=== PATIENT | male | born 1965 | race Caucasian/White ===

== ENCOUNTER 2021-09-18 07:44 | Emergency (ER) | payer OTHER, SELFPAY ==
--- NOTE | ~2021-09-18 | XR_ITS ---
EXAMINATION: XR chest 2V DATE: 09/18/2021 08:26 INDICATION: Chest pressure. Left arm pain. TECHNIQUE: Frontal and lateral views of the chest were obtained. COMPARISON: Chest 2 views 06/09/2018, CT abdomen and pelvis 06/08/2018 FINDINGS: The chest demonstrates clear lungs without pneumonia, pleural effusion, or pneumothorax. Th e heart size is normal. IMPRESSION: 1. No acute cardiopulmonary disease. Reviewed, dictated and finalized at location A.
[2021-09-18 07:46] VITALS: BP 166/93; PULSE 58; RESP 16; TEMP 36.8; O2SAT 100
[2021-09-18 07:58] VITALS: PULSE 58
--- NOTE | 2021-09-18 08:04 | ECG_ITS ---
Measurements Intervals Ridge Rate: 60 P: 50 IN: 143 QRS: 33 QRSD: 106 T: 79 QT: 399 QTc: 401 Interpretive Statements SINUS RHYTHM INCOMPLETE RIGHT BUNDLE BRANCH BLOCK [90+ ms QRS DURATION, TERMINAL R IN V1/V2, 40+ ms S IN I/aVL/V4/V5/V6] COMPARED TO ECG 06/08/2018 18:24:14 INCOMPLETE RIGHT BUNDLE-BRANCH BLOCK NOW PRESENT Electronically Signed On 09-18-2021 16:30:14 CDT by Morena March M.D.
[2021-09-18] MEDS: KETOROLAC 30 MG/ML VIAL (*BKC) IV PUSH (08:07)
[2021-09-18 08:15] LABS: Basophils Absolute Auto 0.1 K/mm3 (0.0-0.1); Basophils Percent Auto 1.3 % (0.2-1.2); Eosinophils Absolute Auto 0.2 K/mm3 (0-0.3); Eosinophils Percent Auto 2.2 % (0-4.4); Hematocrit 50.1 % (42.0-52.0); Hemoglobin 16.5 g/dL (14.0-18.0); Immature Granulocyte Absolute 0.03 K/mm3 (0.00-0.031); Immature Granulocyte Percent A 0.3 % (0-0.5); Lymphocytes Absolute Auto 3.67 K/mm3 (0.9-3.2); Lymphocytes Percent Auto 39.8 % (18.3-44.2); Mean Corpuscular HGB Conc 32.9 g/dl (32-36); Mean Platelet Volume 10.8 fl (7.4-10.4); Monocytes Absolute Auto 0.6 K/mm3 (0.1-0.6); Monocytes Percent Auto 6.3 % (2.6-8.5); Neutrophils Absolute Auto 4.6 K/mm3 (1.3-6.7); Neutrophils Percent Auto 50.1 % (45.5-73.1); Platelet Count Result 350 k/mm3 (150-375); Red Blood Count 5.33 M/mm3 (4.6-6.20); Red Cell Distribution Width 13.4 % (11.5-14.5); White Blood Count 9.2 K/mm3 (4.5-10.0)
[2021-09-18 08:24] LABS: Prothrombin Time 12.6 Seconds (11.1-14.7)
[2021-09-18 08:25] LABS: Partial Thromboplastin Time 26.1 SECONDS (22.3-36.8)
[2021-09-18 08:30] LABS: Alanine Aminotransferase 20 U/L (6-50); Albumin Level 4.7 g/dL (3.5-5.1); Alkaline Phosphatase 70 U/L (38-126); Anion Gap 10 mmol/L (8-16); Aspartate Amino Transferase 30 U/L (17-59); Bilirubin,Total 0.4 mg/dL (0.2-1.3); Blood Urea Nitrogen 10 mg/dL (9-20); Calcium 9.5 mg/dL (8.4-10.2); Carbon Dioxide 28 mmol/L (22-30); Chloride 99 mmol/L (98-107); Estimated CRCL calculation 70 ml/min; Estimated Glomerular Filt Rate > 60; Glucose 268 mg/dL (65-110); Lipase 739 U/L (23-300); Potassium 4.2 mmol/L (3.4-5.0); Sodium 137 mmol/L (137-145)
[2021-09-18 08:38] VITALS: BP 188/94; PULSE 51; RESP 19; O2SAT 98
[2021-09-18 08:42] LABS: Troponin I < 0.012 ng/mL (0.000-0.034)
[2021-09-18 10:42] VITALS: BP 183/97; PULSE 54; RESP 18; O2SAT 97
[2021-09-18 11:16] LABS: Troponin I < 0.012 ng/mL (0.000-0.034)
--- NOTE | 2021-09-18 11:21 | ED.GENADULT ---
HPI - General Adult General Chief complaint: Unspecified Stated complaint: left arm pain/numbness, if i lay on my back - CP Time Seen by Provider: 09/18/21 08:11 Source: patient and family Mode of arrival: ambulatory Limitations: no limitations History of Present Illness HPI narrative: 55-year-old with a history of diabetes here with complaints of left-sided chest pain mostly in the scapular area for past few weeks. Patient states that occasionally he gets severe pain which he had few days ago however he chose not to come to the ER, since this morning having constant pain. He denies any trauma. Patient states that he works for [employer] at times picks heavy grocery bags. No previous history of CAD Onset (ago): week(s) (2) Location: upper extremity (left) Radiation: back Severity: moderate Quality: aching Pain Consistency: constant Relieving factors: none Exacerbating factors: movement Associated symptoms: denies other symptoms Treatments prior to arrival: none Related Data Home Medications Medication Instructions Recorded Confirmed A To Z Multivitamin 09/18/21 Aspir-81 09/18/21 ncyrpmnish-gbmczwxalqlsd-jhrgocoe tablet 09/18/21 50 mg-325 mg-40 mg tablet fenofibrate 160 mg tablet mg 09/18/21 fluticasone propionate 50 intranasal 09/18/21 mcg/actuation nasal spray,suspension gabapentin 300 mg capsule mg 09/18/21 glimepiride 1 mg tablet mg 09/18/21 insulin glargine 100 unit/mL (3 unit subcut 09/18/21 mL) subcutaneous pen (Basaglar KwikPen U-100 Insulin) insulin glargine 100 unit/mL (3 unit subcut 09/18/21 mL) subcutaneous pen (Basaglar KwikPen U-100 Insulin) metformin 1,000 mg tablet mg 09/18/21 trazodone 50 mg tablet mg 09/18/21 Allergies Allergy/AdvReac Type Severity Reaction Status Date / Time venom-honey bee Allergy Anaphylaxis Verified 09/18/21 07:56 Review of Systems Review of Systems: All systems reviewed & are unremarkable except as noted in HPI and below Constitutional: Constitutional: Reports no additional constitutional complaints Eyes: Eyes: Reports no additional eye complaints ENT: Reports system reviewed and no additional complaints, except as documented Cardiovascular: Cardiovascular: Reports as per HPI Respiratory: Respiratory: Reports no additional respiratory complaints Gastrointestinal: Gastrointestinal: Reports no additional gastrointestinal complaints Musculoskeletal: Musculoskeletal: Reports as per HPI Integumentary/Breasts: Skin/Breast: Reports system reviewed and no additional complaints, except as docu Neurologic: Reports system reviewed and no additional complaints, except as documented Exam Narrative: GENERAL: Well-appearing, well-nourished, and in no acute distress. HEAD: Normocephalic, atraumatic. EYES: PERRLA and EOMI. NECK: Supple. CHEST: Clear to auscultation. No respiratory distress. HEART: Regular rate and rhythm. No murmur heard. Normal peripheral pulses. ABDOMEN: Soft, nontender, nondistended, normal active bowel sounds. EXTREMITIES: Normal range of motion. No edema. SKIN: Warm, dry, no rash. NEURO: No focal deficits. Alert and oriented x3. PSYCH: Normal mood and affect. Course Course Emergency Course: Patient comfortably sitting on the bed in no discomfort informed him and his about his lab work, chest x-ray findings his pain appears to be more musculoskeletal rather than cardiac. Recommended him to take pain medications as prescribed. Follow-up with his primary doctor. Vital Signs Vital signs: Vital Signs Temperature 36.8 C 09/18/21 07:46 Pulse Rate 58 L 09/18/21 07:46 Respiratory Rate 16 09/18/21 07:46 Blood Pressure 166/93 H 09/18/21 07:46 Pulse Oximetry 100 09/18/21 07:46 Oxygen Delivery Room Air 09/18/21 07:46 Temperature 36.8 C 09/18/21 07:46 Pulse Rate 54 L 09/18/21 10:42 Respiratory Rate 18 09/18/21 10:42 Blood Pressure 183/97 H 09/18/21 10:42 Pulse Oximetry 97 09/18
== END 2021-09-18 12:08 | disposition home or self-care (01) ==
PROVIDERS: Emergency Provider Family Medicine; PCP Internal Medicine
DX: M25.512 Pain in left shoulder (principal); E11.9 Type 2 diabetes mellitus without complications; Z79.4 Long term (current) use of insulin; Z79.84 Long term (current) use of oral hypoglycemic drugs; Z79.82 Long term (current) use of aspirin
CPT/HCPCS: 36415; 71046; 80053; 83690; 84484; 85025; 85610; 85730; 93005; 96374; 99284; J1885

== ENCOUNTER 2021-10-05 15:42 | Outpatient (CLI) | payer OTHER, SELFPAY ==
--- NOTE | ~2021-10-05 | MR_ITS ---
EXAMINATION: MR cervical spine wo con DATE: 10/05/2021 16:37 INDICATION: Cervical spinal stenosis TECHNIQUE: Magnetic resonance imaging (MRI) of the cervical spine was performed without intravenous c ontrast. Sequences included sagittal T2-weighted FSE, sagittal T2-weighted FS FSE, sagittal T1-weight ed FSE, axial MERGE and axial T2-weighted FSE. COMPARISON: None FINDINGS: Bone alignment is normal. Vertebral body heights are normal. Moderate disc height loss at C3-C4 and C4-C5 with fibrofatty degenerative endplate changes at C3-C4. Bone marrow signal is otherwise normal. Minimal disc height loss with annular fissure and disc extrusion at C6-C7. Mild disc height loss at T2-T3 and T3-T4. Subtle region of increased signal at the midline ventral aspect of the cord at the l evel of C5-C6 measuring approximately 9 mm craniocaudally and 5 x 3 mm orthogonal dimensions. The cor d signal is otherwise normal. Cervical soft tissues are unremarkable. The following disc levels are s pecifically discussed: C2-C3: The disc does not extend beyond the endplate margin. There is no uncovertebral joint osteoarth ritis. There is mild left and moderate right facet joint osteoarthritis. There is no neural foraminal stenosis. There is no central canal stenosis. C3-C4: Disc is mildly bulging. There is severe bilateral uncovertebral joint osteoarthritis. There is mild bilateral facet joint osteoarthritis. There is moderate bilateral neural foraminal stenosis. Th ere is mild central canal stenosis. C4-C5: Disc is mildly bulging. There is right and severe left uncovertebral joint osteoarthritis. The re is mild right and moderate left facet joint osteoarthritis. There is moderate left and mild to mod erate right neural foraminal stenosis. There is mild central canal stenosis. C5-C6: Disc is mildly bulging. There is moderate bilateral uncovertebral joint osteoarthritis. There is right and severe left facet joint osteoarthritis. There is mild right and moderate left neural for aminal stenosis. There is no central canal stenosis. C6-C7: Annular fissure and disc extrusion with disc material extending up to 3 mm cephalad to the inf erior endplate of C6 at the central zone and up to 5 mm caudal to the superior endplate of C7 at the right lateral recess. There is mild left uncovertebral joint osteoarthritis. There is mild right and moderate left facet joint osteoarthritis. There is mild right and moderate left neural foraminal sten osis. There is mild central canal stenosis. C7-T1: The disc does not extend beyond the endplate margin. There is mild bilateral uncovertebral ayaz nt osteoarthritis. There is moderate right and severe left facet joint osteoarthritis. There is bilat eral neural foraminal stenosis. There is no central canal stenosis. IMPRESSION: 1. Moderate cervical spondylosis. 2. Nonspecific small T2 hyperintense lesion at the anterior midline of the cord at the level of C5-C6 without without evident expansion or volume loss of the cord or significant central canal stenosis a t this level to suggest compressive myelopathy. Differential would include demyelinating disease such as multiple sclerosis or other infectious, inflammatory or ischemic myelopathy. Reviewed, dictated and finalized at location A. IMPRESSION: 1. Moderate cervical spondylosis. 2. Nonspecific small T2 hyperintense lesion at the anterior midline of the cord at the level of C5-C6 without without evident expansion or volume loss of the cord or significant central canal stenosis at this level to suggest compressive myelopathy. Differential would include demyelinating disease such as multiple sclerosis or other infectious, inflammatory or ischemic myelopathy.
== END 2021-10-05 15:43 | disposition home or self-care (01) ==
PROVIDERS: PCP Internal Medicine; Visit Provider Orthopaedic Surgery
DX: M48.02 Spinal stenosis, cervical region (principal); M47.892 Other spondylosis, cervical region
CPT/HCPCS: 72141

== ENCOUNTER 2022-01-16 12:41 | Outpatient (CLI) | payer OTHER, SELFPAY ==
--- NOTE | ~2022-01-16 | MR_ITS ---
EXAMINATION: MR cervical spine wo/w con DATE: 01/16/2022 13:48 INDICATION: Spondylosis without myelopathy or radiculopathy. Left arm weakness with numbness in the f ingers. TECHNIQUE: Magnetic resonance imaging (MRI) of the cervical spine was performed without and with 18 m L MultiHance intravenous contrast. COMPARISON: Cervical spine MRI 10/05/2021 FINDINGS: Bone alignment is normal. Vertebral body heights are normal. There is moderately decreased disc height at C3-C4 and C4-C5 and mildly decreased disc height at C6-C7. There is increased T2-weigh elver signal intensity in the spinal cord anteriorly at C5-C6 without contrast enhancement. The followi ng disc levels are specifically discussed: C2-C3: The disc does not extend beyond the endplate margin. There is no uncovertebral joint osteoarth ritis. There is moderate bilateral facet joint osteoarthritis. There is no neural foraminal stenosis. There is no central canal stenosis. C3-C4: The disc is bulging. There is severe bilateral uncovertebral joint osteoarthritis. There is mo derate bilateral facet joint osteoarthritis. There is moderate bilateral neural foraminal stenosis. T here is mild central canal stenosis. C4-C5: The disc is bulging. There is severe bilateral uncovertebral joint osteoarthritis. There is mi ld right and moderate left facet joint osteoarthritis. There is moderate bilateral neural foraminal s tenosis. There is mild central canal stenosis. C5-C6: There is a central protrusion. There is moderate bilateral uncovertebral joint osteoarthritis. There is severe bilateral facet joint osteoarthritis. There is mild right and moderate left neural f oraminal stenosis. There is mild central canal stenosis. C6-C7: There is a right central extrusion. There is mild bilateral uncovertebral joint osteoarthritis . There is moderate right and severe left facet joint osteoarthritis. There is mild right and moderat e left neural foraminal stenosis. There is mild central canal stenosis. C7-T1: The disc does not extend beyond the endplate margin. There is mild bilateral uncovertebral ayaz nt osteoarthritis. There is severe bilateral facet joint osteoarthritis. There is mild bilateral neur al foraminal stenosis. There is no central canal stenosis. IMPRESSION: 1. Stable increased T2-weighted signal intensity in the anterior spinal cord at C5-C6. The differenti al diagnosis is broad and includes multiple sclerosis, viral myelitis, posttraumatic myelopathy, infa rct, and transverse myelitis 2. Stable moderate cervical spondylosis. Reviewed, dictated and finalized at location E. [employer] IMPRESSION: 1. Stable increased T2-weighted signal intensity in the anterior spinal cord at C5-C6. The differential diagnosis is broad and includes multiple sclerosis, vi ral myelitis, posttraumatic myelopathy, infarct, and transverse myelitis 2. Stable moderate cervical spondylosis.
== END 2022-01-16 12:42 | disposition home or self-care (01) ==
PROVIDERS: PCP Internal Medicine; Visit Provider Neurological Surgery
DX: M47.892 Other spondylosis, cervical region (principal)
CPT/HCPCS: 72156; A9577

== ENCOUNTER 2022-06-05 15:57 | Outpatient (CLI) | payer OTHER, SELFPAY ==
--- NOTE | ~2022-06-05 | MR_ITS ---
MRI of the brain Clinical History: Left upper extremity numbness Technique: Axial and sagittal T1-weighted images were acquired. These were followed by axial T2-weigh elver, diffusion weighted, gradient, and FLAIR images.. Following intravenous administration of 18 cc M ultiHance gadolinium, T1-weighted fat-sat imaging was performed in the axial and coronal planes. Findings: No abnormal signal seen in the brain parenchyma. No acute infarct, intracranial hemorrhage, or mass lesion. Ventricles and subarachnoid spaces are unremarkable. Orbits are unremarkable. Paranasal sinuses and m astoid air cells are clear. Major intracranial flow voids appear intact. Sagittal midline structures are intact. No abnormal postcontrast enhancement identified. IMPRESSION: Unremarkable exam. Reviewed, dictated and finalized at location M. IMPRESSION: Unremarkable exam.
== END 2022-06-05 15:58 | disposition home or self-care (01) ==
PROVIDERS: PCP Internal Medicine; Visit Provider Student in an Organized Health Care Education/Training Program
DX: R90.89 Other abnormal findings on diagnostic imaging of central nervous system (principal); R20.0 Anesthesia of skin
CPT/HCPCS: 70553; A9577

== ENCOUNTER 2023-03-19 10:19 | Outpatient (CLI) | payer OTHER, SELFPAY ==
--- NOTE | 2023-03-19 12:00 | NEURO_ITS ---
Impression: # Non-diabetic complains of numbness of left hand. # Mild left Cubital Tunnel Syndrome. Nerve Conduction Studies Anti Sensory Summary Table Stim Site NR Peak (ms) P-T Amp (?V) Site1 Site2 Delta-P (ms) Dist (cm) Marco (m/s) Left Median Anti Sensory (2-3nd Digit) Wrist 3.7 14.1 Wrist 2-3nd Digit 3.7 14.0 38 Wrist 2-3nd Digit 3.7 14.0 38 Left Radial Anti Sensory (Base 1st Digit) Wrist 1.8 70.6 Wrist Base 1st Digit 1.8 0.0 Left Ulnar Anti Sensory (5th Digit) Wrist 3.1 5.0 Wrist 5th Digit 3.1 13.0 42 Motor Summary Table Stim Site NR Onset (ms) O-P Amp (mV) Site1 Site2 Delta-0 (ms) Dist (cm) Amrco (m/s) Left Median Motor Run #1 (Abd Poll Brev) Wrist 4.2 4.5 Elbow Wrist 3.9 26.0 67 Elbow 8.1 5.3 Left Median Motor Run #2 (Abd Poll Brev) Wrist 3.9 5.0 Elbow Wrist 4.5 24.0 53 Elbow 8.4 5.1 Left Ulnar Motor (Abd Dig Minimi) Wrist 3.3 8.4 A Elbow Wrist 5.8 30.0 52 A Elbow 9.1 6.7 B Elbow Wrist 3.7 22.0 59 B Elbow 7.0 7.2 B Elbow A Elbow 2.1 8.0 38 Comparison Summary Table Stim Site NR Peak (ms) P-T Amp (?V) Site1 Site2 Delta-P (ms) Left Median/Ulnar Palm Comparison Run #1 (Wrist - 8cm) Median Palm 1.9 49.2 Median Palm Ulnar Palm Ulnar Palm NR Left Median/Ulnar Palm Comparison Run #2 (Wrist - 8cm) Ulnar Palm 1.7 6.7 EMG Side Muscle Nerve Root Ins Act Fibs Amp Dur Recrt Comment Left 1stDorInt Ulnar C8-T1 Nml Nml Nml Nml Nml Left Ext Indicis Radial (Post Int) C7-8 Nml Nml Nml Nml Nml Left Ext Digitorum Radial (Post Int) C7-8 Nml Nml Nml Nml Nml Left BrachioRad Radial C5-6 Nml Nml Nml Nml Nml Left Abd Poll Brev Median C8-T1 Nml Nml Nml Nml Nml Left Biceps Musculocut C5-6 Nml Nml Nml Nml Nml Left Triceps Radial C6-7-8 Nml Nml Nml Nml Nml Left Deltoid Axillary C5-6 Nml Nml Nml Nml Nml Left FlexCarRad Median C6-7 Nml Nml Nml Nml Nml Left FlexPolLong Median (Ant Int) C7-8 Nml Nml Nml Nml Nml MTDD
== END 2023-03-19 10:20 | disposition home or self-care (01) ==
LOC: ANHNEURO 10:19
PROVIDERS: PCP Internal Medicine; Visit Provider Student in an Organized Health Care Education/Training Program
DX: R20.0 Anesthesia of skin (principal); G56.22 Lesion of ulnar nerve, left upper limb
CPT/HCPCS: 95886; 95909

== ENCOUNTER 2023-08-20 13:24 | Outpatient (CLI) | payer OTHER, SELFPAY ==
--- NOTE | ~2023-08-20 | CT_ITS ---
CT Scan of the Chest without Contrast: Clinical Indication: Lung cancer screening, nicotine dependence Technique: Contiguous sections were acquired throughout the chest without intravenous contrast. Dose reduction technique was used on this scan by utilizing automated exposure control and iterative recon struction technique. The dose-length product (DLP) was 130.14 mGy-cm. Findings: There is no evidence of any significant mediastinal, hilar or axillary lymphadenopathy. The mediastin al soft tissues appear normal. There is no evidence of pleural or pericardial effusion. The lungs are clear. No pulmonary nodules or infiltrates are noted. Images through the upper abdomen reveal no abnormalities. Impression: Lung RADS 1: Negative. 12 month follow-up screening CT advised. Reviewed, dictated and finalized at location . Impression: Lung RADS 1: Negative. 12 month follow-up screening CT advised.
== END 2023-08-20 13:25 | disposition home or self-care (01) ==
PROVIDERS: PCP Internal Medicine; Visit Provider Internal Medicine
DX: Z12.2 Encounter for screening for malignant neoplasm of respiratory organs (principal); Z87.891 Personal history of nicotine dependence
CPT/HCPCS: 71271

== ENCOUNTER 2023-08-25 13:47 | Outpatient (CLI) | payer OTHER, SELFPAY ==
[2023-08-25 14:36] LABS: Basophils Absolute Auto 0.1 K/mm3 (0.0-0.1); Basophils Percent Auto 0.8 % (0.2-1.2); Eosinophils Absolute Auto 0.3 K/mm3 (0-0.3); Eosinophils Percent Auto 2.1 % (0-4.4); Hemoglobin 15.9 g/dL (14.0-18.0); Immature Granulocyte Absolute 0.03 K/mm3 (0.00-0.031); Immature Granulocyte Percent A 0.3 % (0-0.5); Lymphocytes Absolute Auto 4.54 K/mm3 (0.9-3.2); Lymphocytes Percent Auto 38.3 % (18.3-44.2); Mean Corpuscular HGB Conc 34.6 g/dl (32-36); Mean Corpuscular Hemoglobin 32.3 pg (26-34); Mean Corpuscular Volume 93.5 fl (80-100); Mean Platelet Volume 10.9 fl (7.4-10.4); Monocytes Absolute Auto 0.6 K/mm3 (0.1-0.6); Monocytes Percent Auto 5.2 % (2.6-8.5); Neutrophils Absolute Auto 6.3 K/mm3 (1.3-6.7); Neutrophils Percent Auto 53.3 % (45.5-73.1); Platelet Count Result 289 k/mm3 (150-375); Red Blood Count 4.92 M/mm3 (4.6-6.20); Red Cell Distribution Width 13.2 % (11.5-14.5); White Blood Count 11.8 K/mm3 (4.5-10.0)
[2023-08-25 14:46] LABS: Alanine Aminotransferase 41 U/L (6-50); Albumin Level 4.5 g/dL (3.5-5.1); Alkaline Phosphatase 80 U/L (38-126); Anion Gap 9 mmol/L (4-12); Aspartate Amino Transferase 28 U/L (17-59); Bilirubin,Total 0.3 mg/dL (0.2-1.3); Blood Urea Nitrogen 10 mg/dL (9-20); Carbon Dioxide 30 mmol/L (22-30); Chloride 101 mmol/L (98-107); Cholesterol 120 mg/dL (0-200); Estimated Glomerular Filt Rate > 60; Glucose 213 mg/dL (65-110); HDL Direct 41 mg/dL; Potassium 4.3 mmol/L (3.4-5.0); Sodium 140 mmol/L (137-145); Triglycerides 189 mg/dL (<150)
[2023-08-25 14:57] LABS: LDL Cholesterol Direct 64 mg/dL
[2023-08-25 14:58] LABS: Creatinine Urine 23.9 mg/dL
[2023-08-25 15:02] LABS: Microalbumin Urine Random 6.7 mg/L (0-16.7)
[2023-08-25 15:04] LABS: Hemoglobin A1C 7.7 % (<5.7)
[2023-08-25 15:15] LABS: Prostate Specific Antigen 0.7 ng/mL (< OR = 4.0)
== END 2023-08-25 13:48 | disposition home or self-care (01) ==
LOC: ANHLAB 13:51
PROVIDERS: PCP Internal Medicine; Visit Provider Internal Medicine
DX: E11.9 Type 2 diabetes mellitus without complications (principal); I10 Essential (primary) hypertension; Z12.5 Encounter for screening for malignant neoplasm of prostate
CPT/HCPCS: 36415; 80053; 80061; 82043; 83036; 84153; 85025

== ENCOUNTER 2024-03-18 13:08 | Emergency (ER) | payer OTHER, SELFPAY ==
--- NOTE | ~2024-03-18 | CT_ITS ---
CLINICAL INDICATION: Abdominal pain and diarrhea COMPARISON: 06/08/2018. TECHNIQUE: Multiple contiguous axial images of the abdomen and pelvis were performed without the admi nistration of intravenous contrast The dose-length product (DLP) was 549.14 mGy-cm. Automated exposure control and iterative reconstruction technique were employed. FINDINGS/OBSERVATIONS: Visualized lower thorax: The bilateral lung bases are clear. The heart is of normal size, without pericardial effusion. Large hiatal hernia is present. Liver: The liver demonstrates homogeneous attenuation and is not enlarged measuring 16 cm in longitudinal di mension. Gallbladder and biliary system: The gallbladder is only minimally distended, and otherwise unremarkable. Pancreas: Limited evaluation of the pancreas secondary to the lack of intravenous contrast. Spleen: The spleen demonstrates homogeneous attenuation and is not enlarged measuring 8 cm in longitudinal di mension. Kidneys: 2 foci of fluid attenuation are demonstrated within the left kidney. The first within the lower pole measuring 22 x 26 x 20 mm (anterior to posterior x medial to lateral x cranial to caudal dimension), increased in size from previous examination. The second within the interpolar region measuring 14 x 13 x 16 mm (anterior to posterior x medial to lateral x cranial to caudal dimension), new from prior. No hydronephrosis or renal calculi. Adrenal glands: Unremarkable. Gastrointestinal tract: Colonic diverticulosis without surrounding inflammatory change. Appendix: The air-filled appendix is of normal caliber (axial series, images 122 through 134). Vasculature: Densley calcified atherosclerotic disease within the abdominal aorta and pelvic vasculature Lymph nodes: Limited evaluation without contrast. Pelvic structures: The bladder is decompressed and otherwise unremarkable. The prostate gland is not enlarged. Body wall and musculoskeletal: No significant degenerative disease within the lower thoracic or lumbosacral spine. IMPRESSION: Colonic diverticulosis without surrounding inflammatory change. Large hiatal hernia. Interval enlargement of a focus of fluid attenuation within the lower pole of the left kidney with in terval development of a second focus, when compared with prior study performed 06/08/2018. Focused ult rasound may be performed (nonemergently) for further evaluation. No acute intra-abdominal findings, as detailed above. Reviewed, dictated and finalized at location A. [employer] IMPRESSION: Colonic diverticulosis without surrounding inflammatory change. Large hiatal hernia. Interval enlargement of a focus of fluid attenuation within the lower pole of t he left kidney with interval development of a second focus, when compared with prior study performed 06/08/2018. Focused ultrasound may be performed (nonemerge ntly) for further evaluation. No acute intra-abdominal findings, as detailed above.
--- NOTE | ~2024-03-18 | XR_ITS ---
EXAMINATION: XR chest 2V DATE: 03/18/2024 15:05 INDICATION: Cough. TECHNIQUE: Frontal and lateral views of the chest were obtained. COMPARISON: Chest 2 views 09/18/2021, chest CT 08/20/2023 FINDINGS: There is no pneumonia, pleural effusion, or pneumothorax. The heart size is normal. There i s mild chronic anterior wedging of multiple lower thoracic vertebral bodies. IMPRESSION: 1. No acute cardiopulmonary disease. Reviewed, dictated and finalized at location A. [employer]
[2024-03-18 13:16] VITALS: BP 130/73; PULSE 55; RESP 20; TEMP 36.9; O2SAT 100
[2024-03-18 15:00] LABS: Glucose Point of Care 226 mg/dl (65-105)
--- NOTE | 2024-03-18 15:09 | ED_ITS ---
HPI - URI/Sore Throat General Chief Complaint: Upper Respiratory Infection <LEANNA Wang Last Filed: 03/18/24 15:16> Stated Complaint: cough, congestion <LEANNA Wang Last Filed: 03/18/24 15:16> Time Seen by Provider: 03/18/24 15:09 <LEANNA Wang Last Filed: 03/18/24 15:16> Focused HPI: Patient is a 58 y/o male, with PMH of DM, who presents to the ED with c/o cough and diarrhea. Patient reports he has been sick for the past 1 week with cough, sinus pressure/drainage, diarrhea, fever up to 101.9F, fatigue, body aches. Reports diffuse pain in mid abdomen, feels like a grinding sensation. Denies N/V, SOB, CP. States other family members have been sick with similar sx's. GENERAL: Well-appearing, well-nourished, and in no acute distress. HEAD: Normocephalic, atraumatic. CHEST: Clear to auscultation. ?No respiratory distress. No focal lung sounds. HEART: Regular rate and rhythm.? ABD: Minimal diffuse tenderness. No rebound. Normoactive BS NEURO: ?Alert and oriented x3. Patient screened in triage and initial orders placed.? ?Additional care and disposition to be based upon?diagnostic testing and treatment. <Isha Menjivar PA-C - Last Filed: 03/18/24 15:16> Source: patient <LEANNA Wang Last Filed: 03/18/24 15:16> Mode of arrival: ambulatory <LEANNA Wang Last Filed: 03/18/24 15:16> Limitations: no limitations <LEANNA Wang Last Filed: 03/18/24 15:16> History of Present Illness HPI Narrative: Patient 58-year-old gentleman who presents emergency department with chief complaint of cough and diarrhea. The patient reports he has been sick for the last week reports he had some sinus drainage has had multiple bouts of diarrhea the patient states that he also is a diabetic and is concerned that his blood sugars may be not controlled. <Noé Edwards MD - Last Filed: 03/18/24 17:09> Related Data Home Medications: Home Medications ?Medication ?Instructions ?Recorded ?Confirmed ?Last Taken ?Type ibippccpqf-zdymrwjmjuqxh-jlmboctx tablet 09/18/21 11/27/22 Unknown History 50 mg-325 mg-40 mg tablet fenofibrate 160 mg tablet mg 09/18/21 11/27/22 Unknown History fluticasone propionate 50 intranasal 09/18/21 11/27/22 Unknown History mcg/actuation nasal spray,suspension gabapentin 300 mg capsule mg 09/18/21 11/27/22 Unknown History glimepiride 1 mg tablet mg 09/18/21 11/27/22 Unknown History insulin glargine 100 unit/mL (3 unit subcut 09/18/21 11/27/22 Unknown History mL) subcutaneous pen (Basaglar KwikPen U-100 Insulin) metformin 1,000 mg tablet mg 09/18/21 11/27/22 Unknown History trazodone 50 mg tablet mg 09/18/21 11/27/22 Unknown History hydrocodone 7.5 mg-acetaminophen 1 tablet PO QHS PRN 11/27/22 11/27/22 Unknown History 325 mg tablet losartan 25 mg tablet 25 mg PO DAILY 11/27/22 11/27/22 Unknown History methylprednisolone 4 mg tablets in See Rx Instructions PO PER PKG DIR 11/27/22 11/27/22 Unknown History a dose pack naproxen sodium 550 mg tablet 550 mg PO Q12H PRN 11/27/22 11/27/22 Unknown History prednisone 10 mg tablet 10 mg PO DIRECTED 11/27/22 11/27/22 Unknown History tizanidine 2 mg capsule 2 mg PO TID PRN 11/27/22 11/27/22 Unknown History <Isha Menjivar PA-C - Last Filed: 03/18/24 15:16> Allergies/Adverse Reactions: Allergies Allergy/AdvReac Type Severity Reaction Status Date / Time venom-honey bee Allergy Anaphylaxis Verified 03/18/24 13:19 <Isha Menjivar PA-C - Last Filed: 03/18/24 15:16> Review of Systems 2 Review of Systems: A 10 system review of systems was completed on the patient and is negative except for what is stated in the HPI. Nursing and ancillary documentation was reviewed. <Noé Edwards MD - Last Filed: 03/18/24 17:09> [facility] Past Medical History Medical History: Medical History Diabetes Spinal stenosis in cervical region Shoulder disorder <Isha Menjivar PA-C - Last Filed: 03/18/24 15:16> Surgical History Surgical History: Surgical History H/O eye surgery <Isha Menjivar PA-C - Last Filed: 03/18/24 15:16> Family History Family History: Family History Other Heart disease <Isha Menjivar PA-C - Last Filed: 03/18/24 15:16> Social History Social History: Social History Smoking packs per day: 1 Smoking cigarettes per day: 20.0 Smoking status: Current every day smoker Alcohol intake: never Substance use: current Substance use type: marijuana Lack of Transportation: YES Lack of Food: Sometimes True Current Housing: I Have Housing Concerned About Future Housing: No Difficulty Paying Gas/Electric Bills: YES Difficulty Paying for Meds: No Currently Unemployed: No Education: High School Diploma/GED Difficulty w/ Childcare or Family Care: No Living arrangements: with family Occupation/Education: occupation Additional occupation/education comments: [employer] <Isha Menjivar PA-C - Last Filed: 03/18/24 15:16> Exam 2 Narrative: GENERAL: Well-appearing, well-nourished, and in no acute distress. HEAD: Normocephalic, atraumatic. EYES: PERRLA and EOMI. ENT: Nares clear, no rhinorrhea or epistaxis. Mucous membranes moist. NECK: Supple. CHEST: Clear to auscultation. No respiratory distress. HEART: Regular rate and rhythm. No murmur heard. Normal peripheral pulses. ABDOMEN: Soft, nontender, nondistended, normal active bowel sounds. EXTREMITIES: Normal range of motion. No edema. SKIN: Warm, dry, no rash. NEURO: No focal deficits. Alert and oriented x3. PSYCH: Normal mood and affect. <Noé Edwards MD - Last Filed: 03/18/24 17:09> Course Vital Signs Vital signs: Vital Signs Temperature 36.9 C 03/18/24 13:16 Pulse Rate 55 L 03/18/24 13:16 Respiratory Rate 20 03/18/24 13:16 Blood Pressure 130/73 03/18/24 13:16 Pulse Oximetry 100 03/18/24 13:16 Oxygen Delivery Room Air 03/18/24 13:16 Temperature 36.9 C 03/18/24 13:16 Pulse Rate 57 L 03/18/24 15:41 Respiratory Rate 16 03/18/24 15:41 Blood Pressure 144/79 H 03/18/24 15:41 Pulse Oximetry 99 03/18/24 16:22 Oxygen Delivery Room Air 03/18/24 16:22 <Isha Menjivar PA-C - Last Filed: 03/18/24 15:16> Vital Signs Temperature 36.9 C 03/18/24 13:16 Pulse Rate 55 L 03/18/24 13:16 Respiratory Rate 20 03/18/24 13:16 Blood Pressure 130/73 03/18/24 13:16 Pulse Oximetry 100 03/18/24 13:16 Oxygen Delivery Room Air 03/18/24 13:16 Temperature 36.9 C 03/18/24 13:16 Pulse Rate 57 L 03/18/24 15:41 Respiratory Rate 16 03/18/24 15:41 Blood Pressure 144/79 H 03/18/24 15:41 Pulse Oximetry 99 03/18/24 16:22 Oxygen Delivery Room Air 03/18/24 16:22 <Noé Edwards MD - Last Filed: 03/18/24 17:09> MDM - URI/Sore Throat MDM Narrative Medical decision making narrative: MSE by BARBARA in triage. <Isha Menjivar PA-C - Last Filed: 03/18/24 15:16> MSE by BARBARA in triage. Differential diagnosis includes viral illness, gastroenteritis, dehydration, DKA Chest x-ray showed no focal infiltrate CT scan the abdomen pelvis showed no acute The patient was positive for influenza A <Noé Edwards MD - Last Filed: 03/18/24 17:09> Lab Data Result diagrams: 03/18/24 15:18 03/18/24 15:18 <Isha Menjivar PA-C - Last Filed: 03/18/24 15:16> Labs: Lab Results 03/18/24 03/18/24 03/18/24 Range/Units 14:51 14:57 15:18 WBC 7.4 (4.5-10.0) K/mm3 RBC 5.46 (4.6-6.20) M/mm3 Hgb 17.2 (14.0-18.0) g/dL Hct 49.5 (42.0-52.0) % MCV 90.7 (80-100) fl MCH 31.5 (26-34) pg MCHC 34.7 (32-36) g/dl RDW 13.0 (11.5-14.5) % Plt Count 252 (150-375) k/mm3 MPV 10.8 H (7.4-10.4) fl Immature Gran % (Auto) 0.1 (0-0.5) % Neut % (Auto) 29.6 L (45.5-73.1) % Lymph % (Auto) 61.7 H (18.3-44.2) % Preston % (Auto) 7.4 (2.6-8.5) % Eos % (Auto) 0.7 (0-4.4) % Baso % (Auto) 0.5 (0.2-1.2) % Lymph # (Auto) 4.59 H (0.9-3.2) K/mm3 Preston # (Auto) 0.6 (0.1-0.6) K/mm3 Eos # (Auto) 0.1 (0-0.3) K/mm3 Baso # (Auto) 0.0 (0.0-0.1) K/mm3 Abs Immat Gran (auto) 0.01 (0.00-0.031) K/mm3 Absolute Neuts (auto) 2.2 (1.3-6.7) K/mm3 Absolute Nucleated RBC 0.000 (0.0-0.012) K/mm3 Nucleated RBC % 0.0 (0.0-0.2) % Atypical Lymphocytes Present Smudge Cells Few Platelet Estimate Adequate (Adequate) Schistocytes None seen Sodium 137 (137-145) mmol/L Potassium 4.4 (3.4-5.0) mmol/L Chloride 98 (98-107) mmol/L Carbon Dioxide 26 (22-30) mmol/L Anion Gap 13 H (4-12) mmol/L BUN 16 (9-20) mg/dL Creatinine 0.95 (0.7-1.3) mg/dL Estim Creat Clear Calc 80 ml/min Estimated GFR > 60 (59 - ) Glucose 222 H (65-110) mg/dL POC Capillary Glucose 226 H (65-105) mg/dl Calcium 9.1 (8.4-10.2) mg/dL Magnesium 1.7 (1.6-2.3) mg/dL Total Bilirubin 0.5 (0.2-1.3) mg/dL AST 34 (17-59) U/L ALT 32 (6-50) U/L Alkaline Phosphatase 102 (38-126) U/L Total Protein 8.0 (6.3-8.2) g/dL Albumin 4.3 (3.5-5.1) g/dL Influenza A (RT-PCR) Positive A (Negative) Influenza B (RT-PCR) Negative (Negative) RSV (RT-PCR) Negative (Negative) SARS-CoV-2 RNA (RT-PCR) Negative (Negative) <Isha Menjivar PA-C - Last Filed: 03/18/24 15:16> Lab Results 03/18/24 03/18/24 03/18/24 Range/Units 14:51 14:57 15:18 WBC 7.4 (4.5-10.0) K/mm3 RBC 5.46 (4.6-6.20) M/mm3 Hgb 17.2 (14.0-18.0) g/dL Hct 49.5 (42.0-52.0) % MCV 90.7 (80-100) fl MCH 31.5 (26-34) pg MCHC 34.7 (32-36) g/dl RDW 13.0 (11.5-14.5) % Plt Count 252 (150-375) k/mm3 MPV 10.8 H (7.4-10.4) fl Immature Gran % (Auto) 0.1 (0-0.5) % Neut % (Auto) 29.6 L (45.5-73.1) % Lymph % (Auto) 61.7 H (18.3-44.2) % Preston % (Auto) 7.4 (2.6-8.5) % Eos % (Auto) 0.7 (0-4.4) % Baso % (Auto) 0.5 (0.2-1.2) % Lymph # (Auto) 4.59 H (0.9-3.2) K/mm3 Preston # (Auto) 0.6 (0.1-0.6) K/mm3 Eos # (Auto) 0.1 (0-0.3) K/mm3 Baso # (Auto) 0.0 (0.0-0.1) K/mm3 Abs Immat Gran (auto) 0.01 (0.00-0.031) K/mm3 Absolute Neuts (auto) 2.2 (1.3-6.7) K/mm3 Absolute Nucleated RBC 0.000 (0.0-0.012) K/mm3 Nucleated RBC % 0.0 (0.0-0.2) % Atypical Lymphocytes Present Smudge Cells Few Platelet Estimate Adequate (Adequate) Schistocytes None seen Sodium 137 (137-145) mmol/L Potassium 4.4 (3.4-5.0) mmol/L Chloride 98 (98-107) mmol/L Carbon Dioxide 26 (22-30) mmol/L Anion Gap 13 H (4-12) mmol/L BUN 16 (9-20) mg/dL Creatinine 0.95 (0.7-1.3) mg/dL Estim Creat Clear Calc 80 ml/min Estimated GFR > 60 (59 - ) Glucose 222 H (65-110) mg/dL POC Capillary Glucose 226 H (65-105) mg/dl Calcium 9.1 (8.4-10.2) mg/dL Magnesium 1.7 (1.6-2.3) mg/dL Total Bilirubin 0.5 (0.2-1.3) mg/dL AST 34 (17-59) U/L ALT 32 (6-50) U/L Alkaline Phosphatase 102 (38-126) U/L Total Protein 8.0 (6.3-8.2) g/dL Albumin 4.3 (3.5-5.1) g/dL Influenza A (RT-PCR) Positive A (Negative) Influenza B (RT-PCR) Negative (Negative) RSV (RT-PCR) Negative (Negative) SARS-CoV-2 RNA (RT-PCR) Negative (Negative) <Noé Edwards MD - Last Filed: 03/18/24 17:09> Discharge Plan Discharge Clinical Impression: Influenza, Diabetes mellitus with hyperglycemia, Diarrhea <Isha Menjivar PA-C - Last Filed: 03/18/24 15:16> Patient Disposition: Home, Self-Care <LEANNA Wang Last Filed: 03/18/24 15:16> Condition: Stable <LEANNA Wang Last Filed: 03/18/24 15:16> Instructions: Antibiotic Form, Influenza (ED), Acute Diarrhea (ED) <LEANNA Wang Last Filed: 03/18/24 15:16> Patient Language: French <LEANNA Wang Last Filed: 03/18/24 15:16> Prescriptions: No Action hydrocodone-acetaminophen 7.5-325 mg tablet 1 tablet PO QHS PRN losartan 25 mg tablet 25 mg PO DAILY methylprednisolone 4 mg tablets,dose pack See Rx Instructions PO PER PKG DIR Rx Instructions: PO PER PKG DIR naproxen sodium 550 mg tablet 550 mg PO Q12H PRN prednisone 10 mg tablet 10 mg PO DIRECTED Rx Instructions: see taper instructions tizanidine 2 mg capsule 2 mg PO TID PRN prednisone 10 mg tablet 10 mg PO BID Qty: 20 0RF trazodone 50 mg tablet ipurxqecls-jpvbrxrwxldvy-jrgg 50-325-40 mg tablet glimepiride 1 mg tablet metformin 1,000 mg tablet gabapentin 300 mg capsule fluticasone propionate 50 mcg/actuation spray,suspension INTRANASAL fenofibrate 160 mg tablet insulin glargine [Basaglar KwikPen U-100 Insulin] 100 unit/mL (3 mL) insulin pen SUBCUT methocarbamol 500 mg tablet 500 mg PO TID Qty: 30 0RF <Isha Menjivar PA-C - Last Filed: 03/18/24 15:16> Follow-up/Referrals: Torrey,MD Randall [Primary Care Provider] - <Isha Menjivar PA-C - Last Filed: 03/18/24 15:16> Time of Disposition: 17:08 <Isha Menjivar PA-C - Last Filed: 03/18/24 15:16> 17:08 <Noé Edwards MD - Last Filed: 03/18/24 17:09>
[2024-03-18 15:32] LABS: Basophils Percent Auto 0.5 % (0.2-1.2); Eosinophils Absolute Auto 0.1 K/mm3 (0-0.3); Eosinophils Percent Auto 0.7 % (0-4.4); Hematocrit 49.5 % (42.0-52.0); Hemoglobin 17.2 g/dL (14.0-18.0); Immature Granulocyte Absolute 0.01 K/mm3 (0.00-0.031); Immature Granulocyte Percent A 0.1 % (0-0.5); Lymphocytes Absolute Auto 4.59 K/mm3 (0.9-3.2); Lymphocytes Percent Auto 61.7 % (18.3-44.2); Mean Corpuscular HGB Conc 34.7 g/dl (32-36); Mean Corpuscular Hemoglobin 31.5 pg (26-34); Mean Corpuscular Volume 90.7 fl (80-100); Mean Platelet Volume 10.8 fl (7.4-10.4); Monocytes Absolute Auto 0.6 K/mm3 (0.1-0.6); Monocytes Percent Auto 7.4 % (2.6-8.5); Neutrophils Absolute Auto 2.2 K/mm3 (1.3-6.7); Neutrophils Percent Auto 29.6 % (45.5-73.1); Platelet Count Result 252 k/mm3 (150-375); Red Blood Count 5.46 M/mm3 (4.6-6.20); White Blood Count 7.4 K/mm3 (4.5-10.0)
[2024-03-18 15:41] VITALS: BP 144/79; PULSE 57; RESP 16; O2SAT 100
[2024-03-18 15:43] LABS: Influenza A QL RT-PCR Positive (Negative); Influenza B QL RT-PCR Negative (Negative); RSV RNA, RT-PCR Negative (Negative); SARS-CoV-2 RNA PCR Negative (Negative)
[2024-03-18 15:43] LABS: Alanine Aminotransferase 32 U/L (6-50); Albumin Level 4.3 g/dL (3.5-5.1); Alkaline Phosphatase 102 U/L (38-126); Anion Gap 13 mmol/L (4-12); Aspartate Amino Transferase 34 U/L (17-59); Bilirubin,Total 0.5 mg/dL (0.2-1.3); Blood Urea Nitrogen 16 mg/dL (9-20); Calcium 9.1 mg/dL (8.4-10.2); Carbon Dioxide 26 mmol/L (22-30); Chloride 98 mmol/L (98-107); Estimated CRCL calculation 80 ml/min; Estimated Glomerular Filt Rate > 60; Glucose 222 mg/dL (65-110); Magnesium 1.7 mg/dL (1.6-2.3); Potassium 4.4 mmol/L (3.4-5.0); Sodium 137 mmol/L (137-145)
[2024-03-18 15:59] LABS: Atypical Lymphocytes Present; Platelet Estimate Adequate (Adequate); Schistocytes None Seen; Smudge Cells FEW
[2024-03-18 16:22] VITALS: O2SAT 99
== END 2024-03-18 17:18 | disposition home or self-care (01) ==
PROVIDERS: Physician Assistant; Emergency Provider Emergency Medicine; PCP Internal Medicine
DX: J10.1 Influenza due to other identified influenza virus with other respiratory manifestations (principal); R19.7 Diarrhea, unspecified; E11.65 Type 2 diabetes mellitus with hyperglycemia; Z20.822 Contact with and (suspected) exposure to COVID-19; F17.210 Nicotine dependence, cigarettes, uncomplicated; Z79.84 Long term (current) use of oral hypoglycemic drugs; Z79.899 Other long term (current) drug therapy; Z79.4 Long term (current) use of insulin
CPT/HCPCS: 36415; 71046; 74176; 80053; 82948; 83735; 85025; 87637; 99284

== ENCOUNTER 2024-06-16 10:25 | Outpatient (CLI) | payer MEDICAID, SELFPAY ==
--- NOTE | ~2024-06-16 | US_ITS ---
Renal-Bladder ultrasound Clinical History: Abnormal findings on diagnostic imaging Technique: Real-time sonographic imaging of the kidneys and urinary bladder was performed. Findings: The right kidney measures 10.7 cm in length and the left kidney measures 10.4 cm. There is mild right hydronephrosis. No left hydronephrosis. No renal stone seen. Renal cortical echogenicity i s within normal limits. Small left lower pole renal cysts are present. The urinary bladder is moderately distended at the time of this exam. No intraluminal echoes are iden tified. No abnormal wall thickening is seen. Impression: Mild right hydronephrosis. Small left lower pole renal cyst. Reviewed, dictated and finalized at location M. Impression: Mild right hydronephrosis. Small left lower pole renal cyst.
== END 2024-06-16 10:26 | disposition home or self-care (01) ==
PROVIDERS: PCP Internal Medicine; Visit Provider Internal Medicine
DX: R93.89 Abnormal findings on diagnostic imaging of other specified body structures (principal); N28.1 Cyst of kidney, acquired
CPT/HCPCS: 76775

== ENCOUNTER 2024-08-12 13:05 | Outpatient (CLI) | payer OTHER, SELFPAY ==
[2024-08-12 13:28] LABS: Hematocrit 45.5 % (42.0-52.0); Hemoglobin 15.3 g/dL (14.0-18.0); Immature Granulocyte Percent A 0.2 % (0-0.5); Lymphocytes Absolute Auto 4.56 K/mm3 (0.9-3.2); Mean Corpuscular HGB Conc 33.6 g/dl (32-36); Mean Corpuscular Hemoglobin 30.7 pg (26-34); Mean Corpuscular Volume 91.4 fl (80-100); Nucleated Red Blood Cells Absolute Auto 0.000 K/mm3 (0.0-0.012); Nucleated Red Blood Cells Perc 0.0 % (0.0-0.2); Platelet Count Result 323 k/mm3 (150-375); Red Blood Count 4.98 M/mm3 (4.6-6.20); White Blood Count 12.0 K/mm3 (4.5-10.0)
[2024-08-12 13:40] LABS: Alanine Aminotransferase 26 U/L (6-50); Albumin Level 4.4 g/dL (3.5-5.1); Alkaline Phosphatase 95 U/L (38-126); Anion Gap 8 mmol/L (4-12); Aspartate Amino Transferase 23 U/L (17-59); Bilirubin,Total 0.4 mg/dL (0.2-1.3); Blood Urea Nitrogen 12 mg/dL (9-20); Calcium 9.2 mg/dL (8.4-10.2); Carbon Dioxide 27 mmol/L (22-30); Chloride 101 mmol/L (98-107); Cholesterol 150 mg/dL (0-200); Estimated Glomerular Filt Rate > 60; Glucose 269 mg/dL (65-110); HDL Direct 48 mg/dL; Potassium 4.4 mmol/L (3.4-5.0); Sodium 136 mmol/L (137-145); Total Protein 7.5 g/dL (6.3-8.2); Triglycerides 155 mg/dL (<150)
[2024-08-12 13:55] LABS: Hemoglobin A1C 8.7 % (<5.7)
[2024-08-12 14:21] LABS: MALB Creatinine Ratio 64.4 mg/g (0-30)
== END 2024-08-12 13:06 | disposition home or self-care (01) ==
PROVIDERS: PCP Internal Medicine; Visit Provider Internal Medicine
DX: E78.5 Hyperlipidemia, unspecified (principal); E11.9 Type 2 diabetes mellitus without complications; I10 Essential (primary) hypertension
CPT/HCPCS: 36415; 80053; 80061; 82043; 83036; 85025